=== PATIENT | male | born 1995 | race African-American/Black ===

== ENCOUNTER 2023-04-27 19:30 | Emergency (ER) | payer BC, SELFPAY ==
[2023-04-27] MEDS ORDERED: Ibuprofen 800 MG TAB ONE (21:32)
== END 2023-04-27 22:08 | disposition home or self-care (01) ==
LOC: CSHERS 19:30
DX: L60.0 Ingrowing nail (principal); L08.89 Other specified local infections of the skin and subcutaneous tissue
CPT/HCPCS: 99283